=== PATIENT | male | born 1970 | race African-American/Black ===

== ENCOUNTER 2021-03-21 10:55 | Outpatient (CLI) | payer OTHER | END 2021-03-21 10:56 | disposition home or self-care (01) | LOC: EKG 10:55 | PROVIDERS: ATTEND Psychiatry & Neurology Neurology | DX: Z02.71 Encounter for disability determination (principal); I25.9 Chronic ischemic heart disease, unspecified | CPT/HCPCS: 71046; 93005; 93010 ==